=== PATIENT | female | born 1990 | race Caucasian/White ===

== ENCOUNTER 2017-08-23 10:50 | Outpatient (CLI) | payer OTHER ==
[~2017-08-23] VITALS: Ht 170.2 cm; Wt 100.0 kg
[2017-08-23 11:22] VITALS: BP 113/70
[2017-08-23 11:42] LABS: DAU SCREEN DISCLAIMER
== END 2017-08-23 13:47 | disposition home or self-care (01) ==
LOC: LDOP 10:50
PROVIDERS: ATTEND Obstetrics & Gynecology
DX: O26.853 Spotting complicating pregnancy, third trimester (principal); O26.893 Other specified pregnancy related conditions, third trimester; R10.9 Unspecified abdominal pain; Z3A.39 39 weeks gestation of pregnancy
CPT/HCPCS: 59025; 76815; 80307; 81001; 87086; 87210; 87808; 99211; G0463; G0479

== ENCOUNTER 2017-10-27 10:14 | Inpatient (IN) | payer MEDICAID, OTHER ==
[~2017-10-27] VITALS: Ht 170.2 cm; Wt 100.0 kg
[2017-10-27 10:45] VITALS: BP 124/86
[2017-10-27] MEDS ORDERED: PREN-3 PO (10:48)
[2017-10-27 11:10] LABS: DAU SCREEN DISCLAIMER
[2017-10-27] MEDS ORDERED: D5%-LACTATED RINGERS 1,000 ML IV SCH (11:26)
[2017-10-27] MEDS ORDERED: OXYTOCIN 30U/ 0.9% NaCL 500ML 500 ML IV ONE (11:26)
[2017-10-27] MEDS ORDERED: AMPICILLIN 2 GM in SODIUM CHLORIDE 0.9% 100 ML IVPB STA (11:26)
[2017-10-27] MEDS ORDERED: TERBUTALINE 1 MG/ML, 1ML IVPush PRN (11:30)
[2017-10-27] MEDS ORDERED: FENTANYL PF 100 MCG/2ML IVPush PRN (11:30)
[2017-10-27] MEDS ORDERED: ONDANSETRON 2MG/ML, 2ML IVPush PRN ×2 (11:30→21:00)
[2017-10-27] MEDS ORDERED: FENTANYL PF 100 MCG/2ML IV PRN (11:30)
[2017-10-27] MEDS: LACTATED RINGERS 1,000 ML IV SCH ×3 (11:34→19:38)
[2017-10-27 11:47] LABS: HEMATOCRIT 37.2 % (34.6-47.8); HEMOGLOBIN 12.6 g/dL (11.7-16.4); WHITE BLOOD COUNT 8.7 x10^3/uL (3.4-10)
[2017-10-27 12:11] LABS: HIV 1&2 ANTIBODY SCREEN Nonreactive (Nonreactive); HIV-1 p24 ANTIGEN Nonreactive (Nonreactive)
[2017-10-27] MEDS ORDERED: MISOPROSTOL 200 MCG TABLET ONE (13:37)
[2017-10-27] MEDS ORDERED: OXYTOCIN 30U/ 0.9% NaCL 500ML 500 ML ONE (13:37)
[2017-10-27] MEDS ORDERED: LIDOCAINE 1%, 20ML ONE (13:37)
[2017-10-27] MEDS ORDERED: NEWBORN KIT ONE (13:38)
[2017-10-27] MEDS ORDERED: OXYTOCIN 30U/ 0.9% NaCL 500ML 500 ML IV PRN (13:48)
[2017-10-27] MEDS: AMPICILLIN 1 GM in SODIUM CHLORIDE 0.9% 50 ML IVPB SCH ×3 (15:36→23:49)
[2017-10-27] MEDS ORDERED: FENTANYL PF 100 MCG/2ML ONE ×2 (19:53→19:56)
[2017-10-27] MEDS ORDERED: FENTANYL/BUPIV./NS/PF 250 ML EPIDCONT ONE ×2 (19:54→19:56)
[2017-10-27] MEDS ORDERED: BUPIVACAINE 0.25% ONE ×2 (19:54→19:56)
[2017-10-27] MEDS ORDERED: LIDOCAINE/PF 1.5%-EPI 1:200K, 30ML ONE (19:56)
[2017-10-27] MEDS ORDERED: LACTATED RINGERS 1,000 ML IV SCH (20:46)
[2017-10-27] MEDS ORDERED: FENTANYL/BUPIV./NS/PF 250 ML EPIDCONT SCH (20:46)
[2017-10-27] MEDS ORDERED: EPHEDRINE 50 MG/ML, 1ML IVPush PRN (21:00)
[2017-10-27] MEDS ORDERED: LACTATED RINGERS 1,000 ML IVBOLUS PRN (21:00)
[2017-10-27] MEDS ORDERED: ONDANSETRON 2MG/ML, 2ML ONE (22:21)
[2017-10-28] MEDS ORDERED: OXYTOCIN 30U/ 0.9% NaCL 500ML 500 ML IV SCH ×2 (01:05)
[2017-10-28] MEDS ORDERED: METHYLERGONOVINE 0.2 MG/ML IM PRN (01:30)
[2017-10-28] MEDS ORDERED: DIPH,PERTUSS(ACELL),TET VAC/PF NC IM-VACC PRN (01:30)
[2017-10-28] MEDS ORDERED: MAGNESIUM HYDROXIDE 8%, 30ML UDC PO PRN (01:30)
[2017-10-28] MEDS ORDERED: CALCIUM CARBONATE 500 MG TAB.CHEW PO PRN (01:30)
[2017-10-28] MEDS ORDERED: IBUPROFEN 800 MG TABLET PO PRN (01:30)
[2017-10-28] MEDS ORDERED: OXYTOCIN 10 UNITS/ML, 1ML IM PRN (01:30)
[2017-10-28] MEDS ORDERED: ONDANSETRON 2MG/ML, 2ML IV PRN (01:30)
[2017-10-28] MEDS ORDERED: OXYcodone/APAP 5/325MG TABLET PO PRN ×2 (01:30)
[2017-10-28] MEDS ORDERED: ACETAMINOPHEN 325 MG TABLET PO PRN ×3 (01:30)
[2017-10-28] MEDS ORDERED: OXYTOCIN 30U/ 0.9% NaCL 500ML 500 ML ONE (01:47)
[2017-10-28 03:30] VITALS: BP 115/68
[2017-10-28 07:30] VITALS: BP 133/92
[2017-10-28 08:59] LABS: HEMATOCRIT 36.7 % (34.6-47.8); HEMOGLOBIN 12.4 g/dL (11.7-16.4); WHITE BLOOD COUNT 9.7 x10^3/uL (3.4-10)
[2017-10-28] MEDS: PRENATAL VIT/IRON/FA 1 EACH TABLET PO SCH (12:03)
[2017-10-28] MEDS: DOCUSATE 100 MG CAPSULE PO PRN (12:03)
[2017-10-28 13:15] VITALS: BP 134/89
[2017-10-28 15:55] VITALS: BP 112/78
[2017-10-28 19:13] VITALS: BP 128/83
[2017-10-29 07:00] VITALS: BP 115/79
[2017-10-29] MEDS: DOCUSATE 100 MG CAPSULE PO PRN (08:33)
[2017-10-29] MEDS: PRENATAL VIT/IRON/FA 1 EACH TABLET PO SCH (08:33)
[2017-10-29 20:37] VITALS: BP 137/94
[2017-10-30 07:45] VITALS: BP 128/79
[2017-10-30] MEDS: PRENATAL VIT/IRON/FA 1 EACH TABLET PO SCH (09:00)
[2017-10-30] MEDS ORDERED: OXYC-302 PO (10:51)
[2017-10-30] MEDS ORDERED: IBUP-1222 PO (10:51)
== END 2017-10-30 14:52 | disposition home or self-care (01) | DRG 775 ==
LOC: LDOP 10:14 → LDIP 11:17 → 2NW 10-28 03:32
PROVIDERS: ADMIT Obstetrics & Gynecology; ATTEND Obstetrics & Gynecology
PROC: 10E0XZZ Delivery of Products of Conception, External Approach (ICD-10-PCS; principal; 2017-10-28)
PROC: 3E0R3BZ Introduction of Anesthetic Agent into Spinal Canal, Percutaneous Approach (ICD-10-PCS; 2017-10-28)
PROC: 00HU33Z Insertion of Infusion Device into Spinal Canal, Percutaneous Approach (ICD-10-PCS; 2017-10-28)
DX: O80 Encounter for full-term uncomplicated delivery (principal); Z37.0 Single live birth; Z3A.37 37 weeks gestation of pregnancy
CPT/HCPCS: 36415; 76805; 80307; 81001; 85025; 86592; 86703; 86762; 86850; 86900; 87081; 87340; 87899; 89060; J0290; J2405; J3010; J3490; G0435; G0479; J2590; J7120; Q0114